=== PATIENT | female | born 1955 | race Caucasian/White ===

== ENCOUNTER 2019-04-07 14:20 | Emergency (ER) | payer MEDICAID ==
[~2019-04-07] VITALS: Ht 170.2 cm; Wt 68.0 kg
[2019-04-07 14:40] VITALS: BP 135/80
--- NOTE | 2019-04-07 14:50 | NUR ---
PT TRIAGED, SENT BACK TO LOBBY AWAITING FOR BED
--- NOTE | 2019-04-07 16:23 | NUR ---
PT AMBULATED FROM LOBBY TO BED 06 WITH ASSISTANCE FROM EMT
--- NOTE | 2019-04-07 16:40 | NUR ---
PT C/O PROUCTIVE COUGH WITH WHITE PHLEGMS, FEVER/CHILLS, BODYACHES, X8 DAYS. AFEBRILE AT THIS TIME. PT TOOK DAYQUIL/NYQUIL, MUCINEX WITOUT ANY RELIEF. PATIENT STATES BODYACHES OF 5/10 AT THIS TIME. LUNGS CLEAR TO AUSCULTATION. VSS; PATIENT POSITIONED FOR COMFORT; HOB ELEVATED; BEDRAILS UP X1; BED DOWN. ER MD MADE AWARE OF PT STATUS.
--- NOTE | 2019-04-07 16:40 | NUR ---
Note undone in EDM - 04/07/19 at 1652 by HOMAR PT C/O COUGH, FEVER/CHILLS, BODYACHES, X8 DAYS. AFEBRILE 98.1 AT THIS TIME. PT TOOK DAYQUIL/NYQUIL, MUCINEX WITOUT ANY RELIEF. PATIENT STATES BODYACHES OF 5/10 AT THIS TIME; VSS; PATIENT POSITIONED FOR COMFORT; HOB ELEVATED; BEDRAILS UP X1; BED DOWN. ER MADE AWARE OF PT STATUS.
[2019-04-07 18:20] VITALS: BP 161/92
--- NOTE | 2019-04-07 18:20 | NUR ---
Patient discharged with v/s stable. Written and verbal after care instructions given and explained. Patient alert, oriented and verbalized understanding of instructions. Ambulatory with steady gait. All questions addressed prior to discharge. ID band removed. Patient advised to follow up with PMD. Rx of AZITHROMYCIN, PROMETHAZINE/DEXTROMETHORPHAN, BACTRIM, PREDNISONE, MOTRIN given. Patient educated on indication of medication including possible reaction and side effects. Opportunity to ask questions provided and answered.
== END 2019-04-07 18:20 | disposition home or self-care (01) ==
LOC: MED 14:20
DX: J02.8 Acute pharyngitis due to other specified organisms (principal); B96.89 Other specified bacterial agents as the cause of diseases classified elsewhere
CPT/HCPCS: 71045; 99283; Q0092